=== PATIENT | female | born 1995 | race Caucasian/White ===

== ENCOUNTER 2022-06-22 07:34 | Emergency (ER) | payer OTHER ==
[2022-06-22 07:55] VITALS: TEMP 98; BMI 25.7
[2022-06-22] MEDS ORDERED: FAMOTIDINE 20 MG/50 ML IVPB 20 MG/50 ML MG IVPB ONE ×2 (08:08→08:36)
[2022-06-22] MEDS ORDERED: LACTATED RINGERS SOLUTION 1000 ML INFUS.BAG IV ONE (08:08)
[2022-06-22] MEDS ORDERED: ACETAMINOPHEN 1000 MG/100 ML BAG IVPB ONE (08:08)
[2022-06-22] MEDS ORDERED: ACETAMINOPHEN INJECTION 100 ML IVPB ONE (08:35)
[2022-06-22 08:54] LABS: BASO % 0.9 % (0-2.0); EOS % 5.6 % (0-4.5); HEMATOCRIT 38.2 % (32.4-45.2); HEMOGLOBIN 13.8 GM/dL (10.7-15.3); MCH 35.2 pg (25.7-33.7); MEAN CELL VOLUME 97.7 fl (80-96); MEAN PLT VOLUME 8.6 fl (7.5-11.1); MONO % 5.6 % (3.8-10.2); NEUT % 61.9 % (42.8-82.8); PLATELET COUNT 255 10^3/uL (134-434); RBC 3.91 M/mm3 (3.60-5.2); RDW 12.5 % (11.6-15.6); WHITE BLOOD COUNT 6.9 K/mm3 (4.0-10.0)
[2022-06-22 09:14] LABS: ALBUMIN 4.3 g/dl (3.4-5.0); BLOOD UREA NITROGEN 9.7 mg/dL (7-18); CALCIUM 9.7 mg/dL (8.5-10.1)
[2022-06-22 09:15] LABS: MAGNESIUM 2.1 mg/dL (1.8-2.4)
[2022-06-22 09:17] LABS: CREATININE 0.6 mg/dL (0.55-1.3)
[2022-06-22 09:19] LABS: TOT PROT 7.6 g/dl (6.4-8.2)
[2022-06-22 09:21] LABS: BILIRUBIN,TOTAL 0.4 mg/dL (0.2-1)
[2022-06-22 09:45] LABS: INR 1.17 (0.83-1.09); PROTHROMBIN TIME (PATIENT) 13.5 SEC (9.7-13.0)
[2022-06-22 09:47] LABS: ACTIVATED PTT 30.6 SECONDS (25.2-36.5)
[2022-06-22 12:16] VITALS: BP 120/67; PULSE 72; RESP 20
== END 2022-06-22 12:22 | disposition home or self-care (01) ==
LOC: JER 07:34
PROC: 3E033GC Introduction of Other Therapeutic Substance into Peripheral Vein, Percutaneous Approach (ICD-10-PCS; principal; 2022-06-22)
PROC: 3E033NZ Introduction of Analgesics, Hypnotics, Sedatives into Peripheral Vein, Percutaneous Approach (ICD-10-PCS; 2022-06-22)
DX: R07.9 Chest pain, unspecified (principal); R00.0 Tachycardia, unspecified; R42 Dizziness and giddiness; M54.6 Pain in thoracic spine
CPT/HCPCS: 36415; 71046-TC-FY; 80053; 83690; 83735; 84439; 84443; 84484; 84703; 85025; 85379; 85610; 85730; 93005; 93010; 99285-25

== ENCOUNTER 2022-11-15 13:22 | Emergency (ER) | payer OTHER ==
[2022-11-15 13:52] VITALS: BP 137/88; PULSE 114; RESP 18; TEMP 99.4; BMI 23.5
[2022-11-15] MEDS ORDERED: ACETAMINOPHEN 500 MG TABLET (FP) PO ONE (14:25)
[2022-11-15] MEDS ORDERED: METOCLOPRAMIDE HCL INJECTION 10 MG/2 ML VIAL IVPB ONE (14:25)
[2022-11-15] MEDS ORDERED: SODIUM CHLORIDE 0.9% 500 ML INFUS.BAG IV ONE (14:25)
[2022-11-15] MEDS ORDERED: METOCLOPRAMIDE HCL INJECTION 10 MG/2 ML VIAL ONE (14:32)
[2022-11-15] MEDS ORDERED: ACETAMINOPHEN 500 MG TABLET (FP) ONE (14:32)
[2022-11-15 15:09] LABS: HCG,QUALITATIVE URINE Negative
[2022-11-15 15:13] LABS: HEMATOCRIT 45.7 % (32.4-45.2); HEMOGLOBIN 16.1 G/dL (10.7-15.3); MCH 36.1 pg (25.7-33.7); MCHC 35.1 g/dl (32.0-36.0); MEAN CELL VOLUME 102.9 fl (80-96); PLATELET COUNT 280.5 10^3/uL (134-434); RBC 4.44 10^6/uL (3.60-5.2); RDW 12.7 % (11.6-15.6); WHITE BLOOD COUNT 10.1 10^3/uL (4.0-10.8)
[2022-11-15 15:17] LABS: PLATELET ESTIMATE ADEQUATE
[2022-11-15 15:20] LABS: ALBUMIN 5.4 g/dl (3.4-5.0); BLOOD UREA NITROGEN 7.7 mg/dl (7-18); CREATININE 0.7 mg/dl (0.6-1.3); SGOT/AST 20.1 U/L (15-37); SGPT/ALT 13.7 U/L (7-52); TOT PROT 8.3 g/dl (6.4-8.2)
[2022-11-15 16:20] LABS: BILIRUBIN,TOTAL 0.6 mg/dL (0.2-1)
== END 2022-11-15 15:40 | disposition home or self-care (01) ==
LOC: FER 13:22
PROC: 3E033NZ Introduction of Analgesics, Hypnotics, Sedatives into Peripheral Vein, Percutaneous Approach (ICD-10-PCS; principal; 2022-11-15)
DX: G43.911 Migraine, unspecified, intractable, with status migrainosus (principal); G44.221 Chronic tension-type headache, intractable; R11.2 Nausea with vomiting, unspecified
CPT/HCPCS: 36415; 70450-TC; 80053; 81003; 84703; 85025; 99284-25

== ENCOUNTER 2023-02-28 13:28 | Emergency (ER) | payer OTHER ==
[2023-02-28 14:16] VITALS: BP 108/63; PULSE 97; RESP 16; TEMP 97.5; BMI 25.7
== END 2023-02-28 14:38 | disposition home or self-care (01) ==
LOC: FER 13:28
DX: R05.9 Cough, unspecified (principal); R09.81 Nasal congestion; J02.9 Acute pharyngitis, unspecified; J06.9 Acute upper respiratory infection, unspecified; B97.89 Other viral agents as the cause of diseases classified elsewhere; Z20.822 Contact with and (suspected) exposure to COVID-19
CPT/HCPCS: 0241U-QW; 99283-25

== ENCOUNTER 2023-10-17 16:53 | Emergency (ER) | payer OTHER ==
[2023-10-17 17:10] VITALS: BP 127/88; PULSE 88; RESP 100; TEMP 98.6; BMI 33.6
[2023-10-17] MEDS ORDERED: TETRACAINE 0.5% OPHTH SOLN 2 ML BOTTLE ONE (17:21)
[2023-10-17] MEDS ORDERED: FLUORESCEIN NA 1 EA STRIP ONE (17:21)
[2023-10-17] MEDS: TETRACAINE 0.5% HCL 0.6ML DROPPER.BOTTLE OS ONE (17:35)
[2023-10-17] MEDS: FLUORESCEIN NA 1 EA STRIP OS ONE (17:40)
== END 2023-10-17 18:14 | disposition home or self-care (01) ==
LOC: FER 16:53
DX: H57.12 Ocular pain, left eye (principal); H53.149 Visual discomfort, unspecified
CPT/HCPCS: 99283-25